=== PATIENT | male | born 1945 | race Caucasian/White ===

== ENCOUNTER 2018-01-10 09:16 | Day surgery (SDC) | payer MEDICARE ==
[2018-01-05 09:29] VITALS: BMI 24.7
[2018-01-10] MEDS ORDERED: Lidocaine 2% MPF (5 ml) Inj ONE ×3 (13:08→13:20)
[2018-01-10] MEDS ORDERED: Midazolam 2 MG/2 ML VIAL ONE (13:11)
--- NOTE | 2018-01-10 13:31 | PCM.OP ---
Operative Report - Operative Report Date of Surgery/Procedure: 01/10/18 Time of Surgery/Procedure: 13:15 Surgeon: Jacki Battery Charger: None Anesthesia/Sedation: Versed 2 mg Pre-Operative Diagnosis: Battery depletion of cardiac monitoring device. Post-Operative Diagnosis: Same Indication for Surgery: Battery Depletion Operative Findings: Successful removal of ILR Procedure/Operation Description: Two cm incision made in inframammary fold along previous scar. Device removed. Incision closed with 3-0 polysorb followed bt 4-0 monocryl and dermabond. Estimated Blood Loss: 2 cc Complications: None Discharge & Condition: Stable at time of discharge home
[2018-01-11] MEDS ORDERED: Multiple Vitamins Tab PO SCH (10:00)
[2018-01-11] MEDS ORDERED: Pantoprazole 40 mg EC Tab PO SCH (10:00)
== END 2018-01-10 15:50 | disposition home or self-care (01) ==
LOC: C.SPRAD 09:16
PROVIDERS: ATTEND Internal Medicine Clinical Cardiac Electrophysiology
DX: Z45.010 Encounter for checking and testing of cardiac pacemaker pulse generator [battery] (principal); Z46.89 Encounter for fitting and adjustment of other specified devices
CPT/HCPCS: 33284; J1644; J2250